=== PATIENT | female | born 2000 | race Caucasian/White ===

== ENCOUNTER 2022-01-05 17:22 | Emergency (ER) | payer OTHER, MEDICAID | END 2022-01-05 20:00 | LOC: SUPCPDRO 17:22 → JD.ED 17:22 | DX: Z53.21 Procedure and treatment not carried out due to patient leaving prior to being seen by health care provider (principal) ==

== ENCOUNTER 2024-07-01 04:51 | Inpatient (IN) | payer MEDICAID, OTHER ==
[~2024-07-01 04:51] MED LIST: Sodium Chloride 0.9% 10 ML Syringe FLUSH PRN
[2024-07-01] MEDS ORDERED: Sodium Chloride 0.9% 10 ML Syringe FLUSH PRN (05:00)
[2024-07-01] MEDS ORDERED: Lactated Ringers 1,000 ML IV SCH (05:00)
[2024-07-01] MEDS: Lactated Ringers 1,000 ML IV SCH (06:17)
[2024-07-01 06:20] LABS: BASOPHILS PERCENT AUTO 0.4 % (0.0-1.0); EOSINOPHILS ABSOLUTE AUTO 0.2 K/mm3 (0.0-0.4); EOSINOPHILS PERCENT AUTO 1.8 % (0.0-6.0); HEMATOCRIT 35.5 % (37.0-47.0); IMMATURE GRAN ABSOLUTE AUTO 0.04 K/mm3 (0.00-0.05); IMMATURE GRAN PERCENT AUTO 0.4 % (0.0-0.4); LYMPHOCYTES ABSOLUTE AUTO 2.3 K/mm3 (1.0-4.8); LYMPHOCYTES PERCENT AUTO 24.1 % (24.0-44.0); MEAN CORPUSCULAR HEMOGLOBIN 29.7 pg (28.0-32.0); MEAN CORPUSCULAR HGB CONC 33.8 g/dl (32.0-36.0); MEAN CORPUSCULAR VOLUME 87.9 fl (83.0-99.0); MEAN PLATELET VOLUME 9.1 fl (9.4-12.3); MONOCYTES ABSOLUTE AUTO 0.9 K/mm3 (0.0-0.8); MONOCYTES PERCENT AUTO 9.3 % (0.0-8.0); NEUTROPHILS ABSOLUTE AUTO 6.2 K/mm3 (1.8-7.7); PLATELET COUNT,PLT 231 K/mm3 (150-400); RED BLOOD CELL COUNT 4.04 M/mm3 (4.10-5.30); WHITE BLOOD CELL COUNT,WBC 9.63 K/mm3 (3.9-11.3)
[2024-07-01] MEDS ORDERED: Morphine PF 10 MG/10 ML SDV ONE (06:32)
[2024-07-01] MEDS ORDERED: Lactated Ringers 1,000 ML ONE (06:32)
[2024-07-01] MEDS ORDERED: Dexamethasone 4 MG/ML SDV ONE (06:32)
[2024-07-01] MEDS ORDERED: Ondansetron 4 MG/2 ML SDV ONE (06:32)
[2024-07-01] MEDS ORDERED: ceFAZolin 2 GM Vial ONE (06:33)
[2024-07-01] MEDS ORDERED: Metoclopramide 10 MG/2 ML SDV IVPUSH ONE (07:00)
[2024-07-01] MEDS ORDERED: Oxytocin/0.9 % Sodium Chloride 30 UNIT/500 ML BAG IV SCH ×2 (07:00)
[2024-07-01] MEDS ORDERED: Citric Acid/Sodium Citrate Solution 30 ML Cup PO ONE (07:00)
[2024-07-01] MEDS: Citric Acid/Sodium Citrate Solution 30 ML Cup PO ONE (07:07)
[2024-07-01] MEDS: Metoclopramide 10 MG/2 ML SDV IVPUSH ONE (07:07)
[2024-07-01] MEDS: Bupivacaine 0.5% 30 ML SDV ONE (07:49)
[2024-07-01] MEDS ORDERED: Ketorolac 30 MG/ML SDV ONE (07:54)
[2024-07-01] MEDS ORDERED: Ondansetron 4 MG/2 ML SDV IVPUSH PRN (08:23)
[2024-07-01] MEDS ORDERED: fentaNYL 100 MCG/2 ML SDV IVPUSH PRN (08:23)
[2024-07-01] MEDS: diphenhydrAMINE 50 MG/ML SDV IVPUSH PRN ×2 (10:00→22:36)
[2024-07-01] MEDS ORDERED: Naloxone 0.4 MG/ML SDV IVPUSH PRN (11:21)
[2024-07-01] MEDS ORDERED: Acetaminophen 325 MG Tab PO PRN (11:21)
[2024-07-01] MEDS ORDERED: ePHEDrine 50 MG/ML SDV IVPUSH PRN (11:21)
[2024-07-01] MEDS: Dextrose 5%-Lactated Ringers 1,000 ML IV SCH (11:44)
[2024-07-01] MEDS: Ketorolac 30 MG/ML SDV IVPUSH SCH (14:38)
[2024-07-01] MEDS: Acetaminophen/oxyCODONE 325-5 MG Tab PO PRN (14:46)
[2024-07-02 05:28] LABS: BASOPHILS PERCENT AUTO 0.3 % (0.0-1.0); EOSINOPHILS ABSOLUTE AUTO 0.1 K/mm3 (0.0-0.4); EOSINOPHILS PERCENT AUTO 1.1 % (0.0-6.0); HEMATOCRIT 29.2 % (37.0-47.0); HEMOGLOBIN 9.9 gm/dl (12.0-16.0); IMMATURE GRAN ABSOLUTE AUTO 0.05 K/mm3 (0.00-0.05); IMMATURE GRAN PERCENT AUTO 0.4 % (0.0-0.4); LYMPHOCYTES ABSOLUTE AUTO 2.6 K/mm3 (1.0-4.8); MEAN CORPUSCULAR HEMOGLOBIN 29.9 pg (28.0-32.0); MEAN CORPUSCULAR HGB CONC 33.9 g/dl (32.0-36.0); MEAN CORPUSCULAR VOLUME 88.2 fl (83.0-99.0); MEAN PLATELET VOLUME 9.7 fl (9.4-12.3); MONOCYTES ABSOLUTE AUTO 1.2 K/mm3 (0.0-0.8); MONOCYTES PERCENT AUTO 10.4 % (0.0-8.0); NEUTROPHILS ABSOLUTE AUTO 7.4 K/mm3 (1.8-7.7); NEUTROPHILS PERCENT AUTO 64.8 % (41.0-71.0); PLATELET COUNT,PLT 199 K/mm3 (150-400); RED BLOOD CELL COUNT 3.31 M/mm3 (4.10-5.30); WHITE BLOOD CELL COUNT,WBC 11.48 K/mm3 (3.9-11.3)
[2024-07-02] MEDS: Acetaminophen/oxyCODONE 325-5 MG Tab PO PRN (08:58)
[2024-07-02] MEDS: Ibuprofen 600 MG Tab PO SCH (09:01)
[2024-07-02] MEDS: Sodium Chloride 0.9% 10 ML Syringe FLUSH SCH ×2 (10:21→10:22)
[2024-07-02] MEDS: ceFAZolin 2 GM in Sodium Chloride 0.9% 50 ML IV ONE (10:22)
[2024-07-02] MEDS: Ondansetron 4 MG Tab.DIS PO PRN (21:00)
== END 2024-07-03 12:40 | disposition home or self-care (01) | DRG 788 ==
LOC: JD.OB 04:51 → UNDOADMIN 04:51 → JD.OB 05:00
PROVIDERS: ADMIT Obstetrics & Gynecology; ATTEND Obstetrics & Gynecology
PROC: 10D00Z1 Extraction of Products of Conception, Low, Open Approach (ICD-10-PCS; principal; 2024-07-01 07:30)
DX: O34.211 Maternal care for low transverse scar from previous cesarean delivery (principal); Z37.0 Single live birth; Z3A.38 38 weeks gestation of pregnancy
CPT/HCPCS: 36415; 59025; 85025; 86592; 86850; 86900; 86901; 94762; A9270-GY; J0665; J0690; J1100; J1200; J1885; J2274; J2405; J2765; J7120; J7121; J7999